=== PATIENT | male | born 1985 | race Caucasian/White ===

== ENCOUNTER → 2019-02-01 12:04 | Outpatient (CLI) | payer SELFPAY ==
[2018-04-06 09:17] VITALS: BMI 30.4
[2019-02-01 12:15] VITALS: BP 124/78; PULSE 76; RESP 14; TEMP 36.4; O2SAT 97; BMI 30.5
--- NOTE | 2019-02-01 12:40 | WMO.HTC_ITS ---
Problem List (1) Hemophilia B Status: Chronic Subjective Date of Service:: 02/01/19 Chief Complaint: F/U for Hemophilia B. 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 Use 2 factor replacement for neck/shoulder pain. X-rays were negative. Has Dentures. Health History: Past Medical History (Last Reviewed 02/01/19 @ 12:15 by Sultana Mendez) Hemophilia B (Acute) [place] teeth removed (Acute) Family History (Last Reviewed 02/01/19 @ 12:15 by Sultana Mendez) Brother Bleeding disorder Social History Social History: No changes Smoking Status Current some day smoker Allergies/Adverse Reactions: Allergy/AdvReac Type Severity Reaction Status Date / Time No Known Allergies Allergy Verified 02/01/19 12:15 Risk Factors Social History Social History: No changes Smoking Status Current some day smoker Tobacco Risk Data: Tobacco Risk Smoking Status Current some day smoker Type of tobacco: Smokeless tobacco usage: Items/Day: Year started: Years used: Counseled to quit/cut down: Reason for no counseling performed: Reason for no pharmacotherapy: Tobacco use comments: Passive smoke exposure: Substance Risk Drug use: No Caffeine use [drinks/day]: 2 Alcohol use: No Type of alcohol: Drinks per day: Has patient felt the need to cut down: Has the patient been annoyed by complaints: Has the patient felt guilty about drinking: 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: Comments: Review of Systems Constitutional:: Denies: Fever, Sweats, Weight loss, Appetite change, Chills Cardiovascular:: Denies: Chest pain, Palpitations, Dyspnea on exertion, Orthopnea, PND, Shortness of breath Respiratory: Denies: Cough, Hemoptysis, Shortness of Breath, Wheezing Gastrointestinal:: Denies: Abdominal pain, Nausea, Vomiting, Diarrhea, Constipation, Hematochezia Genitourinary: Denies: Dysuria, Hematuria, 15, Flank pain Musculoskeletal:: Denies: Back pain, Myalgia, Arthralgia Skin: Denies: Rash, Skin Changes, Wounds Neurological:: Denies: Headache, Dizziness, Visual changes, Tinnitus, Hearing loss Psychiatric: Denies: Anxiety, Depression, Homicidal Ideations, Suicidal Ideations Vital Signs Height 6 ft Weight: 102.058 kg Weight in Pounds 225.0 lbs Pulse Ox 97 Temperature 97.6 F Pulse Rate 76 Respiratory Rate 14 Blood Pressure 124/78 Blood Pressure Position Sitting - Physical Exam General: Alert, Oriented x3, No apparent distress HEENT: Atraumatic, PERRLA, EOMI, Normocephalic Oropharynx:: Dry mucosa, - - + Dentures. Neck:: Supple, Trachea midline. Negative for: JVD, bilateral Cardiac:: Regular rate, Regular rhythm, Normal S1, Normal S2. Negative for: Murmur Lungs: Clear to auscultation, Excusion symmetrical. Negative for: Rhonchi, Wheezes Abdomen:: Bowel sounds x 4, Soft, Non-tender, Non-distended. Negative for: Hepatosplenomegaly Extremities:: Negative for: Cyanosis, Edema Neurological: Neuro grossly intact Skin:: Negative for: Lesions, Rash, Petechiae, Ecchymosis Psychiatric:: Appropriate affect, Euthymic Lymphatics:: Negative for: Cervical lymphadenopathy, Supraclavicular lymphadenopathy, Axillary lymphadenopathy Assessment and Plan Hemophilia B, clinically stable. Plan is to continue expectant management with Factor replacement as needed. RTC 1 yr. Primary Care Provider: No Primary Care Phys Referring Provider:
== END ==
PROVIDERS: Visit Provider Internal Medicine Medical Oncology
DX: D67 Hereditary factor IX deficiency (principal)